=== PATIENT | female | born 1950 | race Caucasian/White ===

== ENCOUNTER → 2017-01-31 | Outpatient (CLI) | payer BC ==
[~2017-01-31] MED LIST: ASPIRIN 32325 MG/TAB PO; BENTYL20 MG PO; GABAPENTIN300 MG PO; GOOD NEIGHBOR200 M1 PO; IMODIUM A-1 MG/7.5 M PO; LORAZEPAM0.5 MG PO; LORTAB 7.5/5001 TAB PO; MULTIVITAMIN1 SGL PO; NABUMETONE500 MG PO; PEPTO-BISM262 MG/15 PO
== END ==
LOC: CARDREHAB 07:46
DX: R06.83 Snoring (principal); R09.02 Hypoxemia; E66.01 Morbid (severe) obesity due to excess calories; G47.36 Sleep related hypoventilation in conditions classified elsewhere; G47.19 Other hypersomnia
CPT/HCPCS: G0399

== ENCOUNTER → 2017-02-14 | Outpatient (CLI) | payer BC ==
[2016-05-21 01:04] VITALS: BP 142/86
== END ==
LOC: MAMMO 08:06
DX: Z12.31 Encounter for screening mammogram for malignant neoplasm of breast (principal)
CPT/HCPCS: G0202

== ENCOUNTER → 2017-04-07 | Outpatient (CLI) | payer BC ==
[2016-05-21 01:04] VITALS: BP 142/86
== END ==
LOC: LAB 07:54
DX: R63.5 Abnormal weight gain (principal); G47.00 Insomnia, unspecified; N95.1 Menopausal and female climacteric states

== ENCOUNTER → 2017-10-09 | Outpatient (CLI) | payer BC ==
[2017-08-23 21:41] VITALS: BP 139/80
[~2017-10-09] MED LIST changes: +CIPRO500 M1 PO; +NYSTATIN CREAM15 GM TP; +NYSTATIN POWDER30 GM TOP; +PREDNISONE20 M1 PO
== END ==
LOC: MAMMO 07:11
DX: L53.9 Erythematous condition, unspecified (principal); R92.2 Inconclusive mammogram

== ENCOUNTER → 2017-12-11 | Outpatient (CLI) | payer BC ==
[2017-08-23 21:41] VITALS: BP 139/80
== END ==
LOC: RAD 11-27 07:15
DX: N63.11 Unspecified lump in the right breast, upper outer quadrant (principal); L53.9 Erythematous condition, unspecified

== ENCOUNTER 2018-04-01 07:25 | Emergency (ER) | payer BC ==
[~2018-04-01] VITALS: Ht 165.1 cm; Wt 104.5 kg
[2018-04-01 07:30] VITALS: BP 148/86
[2018-04-01] MEDS ORDERED: PEPCID 20MG TAB20 MG PO (07:33)
[2018-04-01 07:56] LABS: HEMATOCRIT 24.3 % (37.0-47.0); MEAN CELL VOLUME 96 fl (78-100); MEAN CORPUSCULAR HEMOGLOBIN 30 pg (27-31); MEAN CORPUSCULAR HGB CONC 31 g/dL (33-37); MEAN PLATELET VOLUME 9.9 fl (7.4-10.4); PLATELET COUNT 187 K/mm3 (130-400); RED BLOOD COUNT 2.53 M/mm3 (4.10-5.30)
[2018-04-01 07:57] LABS: HEMOGLOBIN 7.6 g/dL (12.5-16.0); RED CELL DISTRIBUTION WIDTH 19.3 % (11.5-14.5); WHITE BLOOD COUNT 1.3 K/mm3 (4.8-10.8)
[2018-04-01 08:08] LABS: LYMPHOCYTE 13 % (20-51); MONOCYTE 2 % (3-10); NEUTROPHILS 84 % (42-75)
[2018-04-01 08:09] LABS: POLYCHROMASIA 1+
[2018-04-01] MEDS ORDERED: MUPIROCIN1 GM NS (08:16)
== END 2018-04-01 08:22 | disposition home or self-care (01) ==
LOC: ED 07:25
PROVIDERS: Family Medicine
DX: R04.0 Epistaxis (principal); D64.81 Anemia due to antineoplastic chemotherapy; D70.9 Neutropenia, unspecified

== ENCOUNTER 2019-01-06 04:04 | Emergency (ER) | payer BC, MEDICARE ==
[~2019-01-06] VITALS: Ht 165.1 cm; Wt 107.3 kg
[~2019-01-06 04:04] MED LIST changes: +MUPIROCIN1 GM NS; +PEPCID 20MG TAB20 MG PO
[2019-01-06 05:46] LABS: HEMATOCRIT 39.7 % (37.0-47.0); HEMOGLOBIN 12.5 g/dL (12.5-16.0); MEAN CELL VOLUME 95 fl (78-100); MEAN CORPUSCULAR HEMOGLOBIN 30 pg (27-31); MEAN CORPUSCULAR HGB CONC 32 g/dL (33-37); MEAN PLATELET VOLUME 9.2 fl (7.4-10.4); PLATELET COUNT 169 K/mm3 (130-400); RED BLOOD COUNT 4.17 M/mm3 (4.10-5.30); RED CELL DISTRIBUTION WIDTH 13.6 % (11.5-14.5); WHITE BLOOD COUNT 5.3 K/mm3 (4.8-10.8)
[2019-01-06 05:58] LABS: CALCIUM 9.2 mg/dL (8.4-10.2); POTASSIUM 4.1 mmol/L (3.6-5.0)
[2019-01-06 06:06] LABS: LYMPHOCYTE 17 % (20-51); MONOCYTE 8 % (3-10); NEUTROPHILS 72 % (42-75)
[2019-01-06] MEDS ORDERED: FLUTICASONE P15.8 ML NS (07:00)
[2019-01-06 07:08] VITALS: BP 131/72
[2019-01-08] MEDS ORDERED: VITAMIN B-625 M1 (17:42)
[2019-01-08] MEDS ORDERED: CO Q-1010 M2 (17:42)
[2019-01-08] MEDS ORDERED: DAILY VALUE1 EACH PO (17:42)
== END 2019-01-06 07:04 | disposition home or self-care (01) ==
LOC: ED 04:04
PROVIDERS: Physician Assistant
DX: H69.92 Unspecified Eustachian tube disorder, left ear (principal); G47.00 Insomnia, unspecified; L23.0 Allergic contact dermatitis due to metals; Z85.3 Personal history of malignant neoplasm of breast; Z90.12 Acquired absence of left breast and nipple

== ENCOUNTER 2020-07-16 18:30 | Emergency (ER) | payer MEDICARE, BC ==
[~2020-07-16 18:30] MED LIST changes: +CO Q-1010 M2; +DAILY VALUE1 EACH PO; +FLUTICASONE P15.8 ML NS; +VITAMIN B-625 M1
[2020-07-16 19:18] LABS: HEMATOCRIT 33.5 % (37.0-47.0); HEMOGLOBIN 10.4 g/dL (12.5-16.0); MEAN CELL VOLUME 94 fl (78-100); MEAN CORPUSCULAR HEMOGLOBIN 29 pg (27-31); MEAN CORPUSCULAR HGB CONC 31 g/dL (33-37); MEAN PLATELET VOLUME 10.9 fl (7.4-10.4); PLATELET COUNT 158 K/mm3 (130-400); RED BLOOD COUNT 3.58 M/mm3 (4.10-5.30); RED CELL DISTRIBUTION WIDTH 14.8 % (11.5-14.5); WHITE BLOOD COUNT 4.6 K/mm3 (4.8-10.8)
[2020-07-16 19:22] LABS: ALBUMIN 3.5 g/dL (3.4-4.8)
[2020-07-16 19:23] LABS: POTASSIUM 4.9 mmol/L (3.5-5.1)
[2020-07-16 19:25] LABS: TOTAL PROTEIN 6.6 g/dL (6.2-8.1)
[2020-07-16 19:27] LABS: TOTAL BILIRUBIN 0.3 mg/dL (0.2-1.2)
[2020-07-16 19:42] LABS: LYMPHOCYTE 32 % (20-51); MONOCYTE 13 % (3-10); NEUTROPHILS 50 % (42-75)
[2020-07-16 19:43] LABS: HYPOCHROMIA 1+
[2020-07-16 20:30] LABS: LIPASE 22 U/L (8-78)
[2020-07-16 20:32] LABS: URINE APPEARANCE HAZY; URINE BILIRUBIN NEGATIVE (NEGATIVE); URINE BLOOD TRACE (NEGATIVE); URINE COLOR YELLOW; URINE GLUCOSE NEGATIVE (NEGATIVE); URINE KETONE NEGATIVE (NEGATIVE); URINE LEUKOCYTE ESTERASE 1+ (NEGATIVE); URINE NITRATE POSITIVE (NEGATIVE); URINE PROTEIN(semi-quant) TRACE mg/dL (NEGATIVE); URINE UROBILINOGEN NORMAL (NORMAL); URINE WBC 16-30 /hpf (0-3)
[2020-07-16] MEDS ORDERED: ELIQUIS5 M1 PO (22:28)
[2020-07-16] MEDS ORDERED: CIPRO 500MG TA500 MG PO (22:28)
[2020-07-16 23:10] VITALS: BP 124/66
== END 2020-07-16 23:10 | disposition home or self-care (01) ==
LOC: ED 18:30
PROVIDERS: Nurse Practitioner Family
DX: R06.00 Dyspnea, unspecified (principal); N39.0 Urinary tract infection, site not specified; R91.8 Other nonspecific abnormal finding of lung field; R11.0 Nausea; I81 Portal vein thrombosis; K76.9 Liver disease, unspecified; Z85.09 Personal history of malignant neoplasm of other digestive organs; Z85.3 Personal history of malignant neoplasm of breast; Z79.1 Long term (current) use of non-steroidal anti-inflammatories (NSAID); Z88.1 Allergy status to other antibiotic agents; Z88.2 Allergy status to sulfonamides; Z88.6 Allergy status to analgesic agent
CPT/HCPCS: J7030; Q9967

== ENCOUNTER 2020-09-25 15:50 | Emergency (ER) | payer MEDICARE, BC ==
[~2020-09-25] VITALS: Ht 165.1 cm; Wt 116.4 kg
[~2020-09-25 15:50] MED LIST changes: +CIPRO 500MG TA500 MG PO; +ELIQUIS5 M1 PO
[2020-09-25 17:23] LABS: HEMATOCRIT 29.1 % (37.0-47.0); LYMPH# 0.8 (1.50-4.00); MEAN CELL VOLUME 89 fl (78-100); MEAN CORPUSCULAR HEMOGLOBIN 28 pg (27-31); MEAN CORPUSCULAR HGB CONC 31 g/dL (33-37); MEAN PLATELET VOLUME 10.9 fl (7.4-10.4); MONO # 0.4 (0.20-0.80); NEU # 4.8 (1.40-6.50); PLATELET COUNT 102 K/mm3 (130-400); RED BLOOD COUNT 3.27 M/mm3 (4.10-5.30); WHITE BLOOD COUNT 6.1 K/mm3 (4.8-10.8)
[2020-09-25 17:24] LABS: RED CELL DISTRIBUTION WIDTH 19.7 % (11.5-14.5)
[2020-09-25 17:30] LABS: POTASSIUM 3.2 mmol/L (3.5-5.1); SODIUM 137 mmol/L (136-145)
[2020-09-25 17:31] LABS: ALBUMIN 3.4 g/dL (3.4-4.8)
[2020-09-25 17:32] LABS: CALCIUM 8.8 mg/dL (8.3-10.5)
[2020-09-25 17:34] LABS: CARBON DIOXIDE 27 mmol/L (23-31); GLUCOSE 116 mg/dL (65-105); TOTAL PROTEIN 5.8 g/dL (6.2-8.1)
[2020-09-25 17:35] LABS: TOTAL BILIRUBIN 1.3 mg/dL (0.2-1.2)
[2020-09-25 17:36] LABS: URINE APPEARANCE CLEAR; URINE BILIRUBIN NEGATIVE (NEGATIVE); URINE BLOOD NEGATIVE (NEGATIVE); URINE COLOR YELLOW; URINE GLUCOSE NEGATIVE (NEGATIVE); URINE KETONE NEGATIVE (NEGATIVE); URINE LEUKOCYTE ESTERASE NEGATIVE (NEGATIVE); URINE NITRATE NEGATIVE (NEGATIVE); URINE PROTEIN(semi-quant) NEGATIVE (NEGATIVE); URINE UROBILINOGEN NORMAL (NORMAL); URINE WBC 0-1 /hpf (0-3)
[2020-09-25 17:39] LABS: AST-SGOT 50 U/L (5-34)
[2020-09-25 17:41] LABS: ALT/SGPT 48 U/L (0-55)
[2020-09-25 17:50] LABS: TROPONIN-I < 0.03 ng/mL (<0.030)
[2020-09-25 18:06] LABS: ERYTHROCYTE SEDIMENTATION RATE 38 mm/hr (0-30)
[2020-09-25] MEDS ORDERED: PHARMASSURE VI100 MG PO (19:15)
[2020-09-25] MEDS ORDERED: K-TAB10 MEQ PO (19:15)
[2020-09-25] MEDS ORDERED: XARELTO20 MG PO (19:15)
[2020-09-25] MEDS ORDERED: PROMETH-CODEIN 65 ML PO (19:17)
[2020-09-25] MEDS ORDERED: VITAMIN D350 MC4 PO (19:17)
[2020-09-25] MEDS ORDERED: FAMOTIDINE20 MG PO (19:18)
[2020-09-25] MEDS ORDERED: CLARITIN10 M1 PO (19:19)
[2020-09-25] MEDS ORDERED: LASIX40 M1 PO (19:19)
[2020-09-25 19:52] VITALS: BP 125/64
== END 2020-09-25 19:52 | disposition home or self-care (01) ==
LOC: ED 15:50
PROVIDERS: Physician Assistant
DX: R50.9 Fever, unspecified (principal); C79.81 Secondary malignant neoplasm of breast; Z20.828 Contact with and (suspected) exposure to other viral communicable diseases; Z88.2 Allergy status to sulfonamides; Z88.6 Allergy status to analgesic agent; Z88.1 Allergy status to other antibiotic agents; Z79.01 Long term (current) use of anticoagulants
CPT/HCPCS: J7030

== ENCOUNTER 2021-02-06 07:06 | Emergency (ER) | payer MEDICARE, BC ==
[~2021-02-06 07:06] MED LIST changes: +CLARITIN10 M1 PO; +FAMOTIDINE20 MG PO; +LASIX40 M1 PO; +PHARMASSURE VI100 MG PO; +POTASSIUM CHLO10 ME7 PO; +PROMETH-CODEIN 65 ML PO; +VITAMIN D350 MC4 PO; +XARELTO20 MG PO
[2021-02-06 07:49] LABS: HEMATOCRIT 27.6 % (37.0-47.0); HEMOGLOBIN 8.8 g/dL (12.5-16.0); MEAN CELL VOLUME 89 fl (78-100); MEAN CORPUSCULAR HEMOGLOBIN 28 pg (27-31); MEAN CORPUSCULAR HGB CONC 32 g/dL (33-37); MEAN PLATELET VOLUME 10.7 fl (7.4-10.4); PLATELET COUNT 77 K/mm3 (130-400); RED BLOOD COUNT 3.12 M/mm3 (4.10-5.30)
[2021-02-06 07:57] LABS: ALBUMIN 3.5 g/dL (3.4-4.8); POTASSIUM 4.2 mmol/L (3.5-5.1)
[2021-02-06 07:58] LABS: CALCIUM 8.9 mg/dL (8.3-10.5)
[2021-02-06 07:59] LABS: TOTAL PROTEIN 5.8 g/dL (6.2-8.1)
[2021-02-06 08:01] LABS: TOTAL BILIRUBIN 3.5 mg/dL (0.2-1.2)
[2021-02-06 08:03] LABS: RED CELL DISTRIBUTION WIDTH 19.8 % (11.5-14.5); WHITE BLOOD COUNT 0.9 K/mm3 (4.8-10.8)
[2021-02-06] MEDS ORDERED: TRODELVY180 MG (08:05)
[2021-02-06] MEDS ORDERED: SPIRONOLACTONE50 M1 PO (08:06)
[2021-02-06 08:07] LABS: LIPASE 16 U/L (8-78)
[2021-02-06] MEDS ORDERED: AYR SALINE MIST50 ML NAS (08:07)
[2021-02-06] MEDS ORDERED: ACETAMINOPHEN-H1 TA2 PO (08:11)
[2021-02-06 08:22] LABS: BAND 1 % (0-10); HYPOCHROMIA 2+; LYMPHOCYTE 64 % (20-51); MONOCYTE 8 % (3-10); NEUTROPHILS 24 % (42-75)
[2021-02-06 10:15] LABS: URINE COLOR DK YELLOW
[2021-02-06 10:16] LABS: URINE APPEARANCE CLOUDY; URINE BILIRUBIN NEGATIVE (NEGATIVE); URINE BLOOD TRACE (NEGATIVE); URINE GLUCOSE NEGATIVE (NEGATIVE); URINE KETONE NEGATIVE (NEGATIVE); URINE LEUKOCYTE ESTERASE 1+ (NEGATIVE); URINE MUCUS PRESENT (NOT PRESENT); URINE NITRATE POSITIVE (NEGATIVE); URINE PROTEIN(semi-quant) TRACE mg/dL (NEGATIVE); URINE UROBILINOGEN NORMAL (NORMAL)
[2021-02-06 15:12] VITALS: BP 96/70
== END 2021-02-06 15:36 | disposition short-term general hospital (02) ==
LOC: ED 07:06
PROVIDERS: Family Medicine
DX: K52.89 Other specified noninfective gastroenteritis and colitis (principal); C50.919 Malignant neoplasm of unspecified site of unspecified female breast; I50.9 Heart failure, unspecified; Z79.01 Long term (current) use of anticoagulants; Z20.822 Contact with and (suspected) exposure to COVID-19
CPT/HCPCS: J0692; J2405; J3010; J3370; J3490; J7030; J7050; Q9967

== ENCOUNTER 2021-02-19 21:49 | Emergency (ER) | payer MEDICARE, BC ==
[~2021-02-19 21:49] MED LIST changes: +ACETAMINOPHEN-H1 TA2 PO; +AYR SALINE MIST50 ML NAS; +SPIRONOLACTONE50 M1 PO; +TRODELVY180 MG
[2021-02-19 22:56] LABS: HEMATOCRIT 25.8 % (37.0-47.0); MEAN CELL VOLUME 97 fl (78-100); MEAN CORPUSCULAR HEMOGLOBIN 29 pg (27-31); MEAN CORPUSCULAR HGB CONC 30 g/dL (33-37); PLATELET COUNT 107 K/mm3 (130-400); RED BLOOD COUNT 2.65 M/mm3 (4.10-5.30); WHITE BLOOD COUNT 4.1 K/mm3 (4.8-10.8)
[2021-02-19 23:03] LABS: HEMOGLOBIN 7.8 g/dL (12.5-16.0); RED CELL DISTRIBUTION WIDTH 26.8 % (11.5-14.5)
[2021-02-19 23:06] LABS: POTASSIUM 4.2 mmol/L (3.5-5.1)
[2021-02-19 23:07] LABS: CALCIUM 8.2 mg/dL (8.3-10.5)
[2021-02-19 23:26] LABS: LYMPHOCYTE 17 % (20-51); MONOCYTE 19 % (3-10); NEUTROPHILS 63 % (42-75)
[2021-02-19 23:27] LABS: NUCLEATED RED BLOOD CELL 1 (0-6); POLYCHROMASIA 1+; TARGET CELLS 2+
[2021-02-20] MEDS ORDERED: AZITHROMYCIN 250MGPK PO (01:11)
[2021-02-20 01:25] VITALS: BP 117/73
== END 2021-02-20 01:25 | disposition home or self-care (01) ==
LOC: ED 21:49
PROVIDERS: Family Medicine
DX: R04.0 Epistaxis (principal); Z85.3 Personal history of malignant neoplasm of breast; Z79.01 Long term (current) use of anticoagulants; Z79.899 Other long term (current) drug therapy

== ENCOUNTER 2021-02-20 07:40 | Emergency (ER) | payer MEDICARE, BC ==
[~2021-02-20 07:40] MED LIST changes: +AZITHROMYCIN 250MGPK PO
[2021-02-20 08:48] VITALS: BP 108/64
== END 2021-02-20 08:50 | disposition home or self-care (01) ==
LOC: ED 07:40
DX: R04.0 Epistaxis (principal); I50.9 Heart failure, unspecified; Z85.3 Personal history of malignant neoplasm of breast; Z88.1 Allergy status to other antibiotic agents; Z88.2 Allergy status to sulfonamides; Z88.6 Allergy status to analgesic agent; Z79.01 Long term (current) use of anticoagulants